=== PATIENT | male | born 1960 | race Caucasian/White ===

== ENCOUNTER 2016-09-27 12:38 | Day surgery (SDC) | payer OTHER ==
[~2016-09-27] VITALS: Ht 170.2 cm; Wt 108.4 kg
[2016-09-27 13:36] VITALS: Ht 170.2 cm; Wt 108.4 kg
[2016-09-27] MEDS ORDERED: RANI150T5 PO (13:44)
[2016-09-27] MEDS ORDERED: LIDOCAINE 2% (SDV) 5 ML INJ ONE (14:11)
[2016-09-27] MEDS ORDERED: PROPOFOL 40 ML ONE (14:11)
[2016-09-27] MEDS ORDERED: MIDAZOLAM 1 MG/ML 2 ML INJ ONE (14:12)
[2016-09-27 14:15] VITALS: BP 181/97; PULSE 105; RESP 16
[2016-09-27] MEDS ORDERED: ZERTEC (14:42)
[2016-09-27 15:05] VITALS: BP 157/99; PULSE 84; RESP 14
--- NOTE | 2016-10-04 09:56 | GILP ---
DATE OF PROCEDURE: 09/27/2016 PROCEDURES PERFORMED: 1. Esophagogastroduodenoscopy and biopsy. 2. Colonoscopy and biopsy. SURGEON: Kelle Quintana MD. PREOP DIAGNOSES: 1. Chronic heartburn. 2. Chronic diarrhea. 3. Screening colonoscopy. POSTOP DIAGNOSES: 1. Hiatal hernia. 2. Reflux esophagitis with erosions. 3. Gastric mucosal biopsies were taken for H. pylori test. 4. Gastritis. 5. Colonoscopy evaluated the cecum. 6. Internal hemorrhoids. 7. Random biopsies were taken to rule out microscopic colitis. 8. No colon neoplasm was identified. INDICATION FOR THE PROCEDURE: The patient is a 56-year-old male patient, who had chronic heartburn not responding to therapy. He also had a history of chronic diarrhea. He never had a screening colonoscopy. The procedures and possible complications were well explained to the patient. He understood and consented to the procedures. DESCRIPTION OF PROCEDURE: Under influence of anesthesia, the gastroscope was carefully introduced into the esophagus. Under direct vision, it was advanced to the stomach into the pylorus into the duodenal bulb and descending duodenum. Findings of esophagus: The patient had hiatal hernia, reflux esophagitis, and erosions. Stomach: He had gastritis. Gastric mucosal biopsies were taken for H. pylori test. Duodenum was normal. The colonoscope was carefully introduced in the rectum. Under direct vision, it was advanced all the way to the cecum. Findings: The patient had internal hemorrhoids. No colon neoplasm was identified. Random biopsies were taken to rule out microscopic colitis. He tolerated the procedures very well, and there were no complications from the procedures. At the end of procedures, he was awake, with stable vital signs, and he was discharged home in the care of his family. IMPRESSION: Please see postop diagnoses. PLAN: 1. Omeprazole 40 mg p.o. q.a.m. 2. Bentyl 10 mg p.o. t.i.d. p.r.n. for diarrhea. 3. Awaiting histopathology report. Dictated By: MD MAURISIO Santamaria/[email or web address] /Document#: [id number]
== END 2016-09-27 17:29 | disposition home or self-care (01) ==
LOC: GIL 12:38
PROVIDERS: ATTEND Internal Medicine Gastroenterology
DX: Z12.11 Encounter for screening for malignant neoplasm of colon (principal); K44.9 Diaphragmatic hernia without obstruction or gangrene; K21.0 Gastro-esophageal reflux disease with esophagitis; K29.70 Gastritis, unspecified, without bleeding; K64.8 Other hemorrhoids
CPT/HCPCS: 43239; 45380; 87081; 88305; J2250; Z7610